=== PATIENT | female | born 1940 | race Caucasian/White ===

== ENCOUNTER 2016-06-20 12:48 | Inpatient (IN) | payer OTHER, MEDICARE ==
[~2016-06-20] VITALS: Ht 121.9 cm; Wt 62.1 kg
[~2016-06-20 12:48] MED LIST: ALDACTAZIDE 251 EACH PO; AMLODIPINE BESY10 MG PO; ASPIRIN NON IR325 MG PO; ATORVASTATIN 10 MG T PO; BUPROPION HCL150 M2 PO; CENTRUM SILVER1 EAC3 PO; ENDOCET 5-3251 EACH PO; FOLTX TABLET1 EAC1 PO; METFORMIN HCL500 M1 PO; METHOTREXATE2.5 MG PO; ONE DAILY GUM200 MCG PO; PRILOSEC20 MG PO; RAYOS2 MG PO; SPIRONOLACTONE-HCTZ
[2016-06-20 14:12] LABS: EOSINOPHIL COUNT 0.1 K/uL (0-0.3); HEMATOCRIT 37.9 % (36.0-46.0); IMMATURE GRANULOCYTE (%) 0.3 % (0.0-0.7); INSTRUMENT ABS NEUTROPHIL CT 8.1 K/uL; LYMPHOCYTE COUNT 1.7 K/uL (1.0-2.8); MCH 29.6 PG (29.0-34.0); MCHC 33.5 G/DL (30.0-36.0); MCV 88.3 FL (83-99); MEAN PLAT.VOLUME 9.7 uM^3 (9.5-12.4); MONOCYTE (%) 2.3 % (3-12); MONOCYTE COUNT 0.2 K/uL (0-0.8); NEUTROPHIL (%) 79.8 % (45-76); NEUTROPHIL COUNT 8.1 K/uL (1.8-6.4); PLATELET COUNT 379 K/uL (156-360); RBC DIS.WIDTH-CV 14.6 % (11.8-14.6); RBC DIS.WIDTH-SD 46.1 % (39-53); RED BLOOD COUNT 4.29 M/uL (3.80-5.20); WHITE BLOOD COUNT 10.2 K/uL (4.1-10.2)
[2016-06-20 14:20] LABS: CHLORIDE 108 mEq/L (99-109); POTASSIUM 4.5 mEq/L (3.7-5.4); SODIUM 142 mEq/L (136-147)
[2016-06-20 14:22] LABS: GLUCOSE 117 mg/dL (70-99)
[2016-06-20 14:23] LABS: D-DIMER ELISA 0.48 mg/L FEU (< 0.57)
[2016-06-20 14:24] LABS: ANION GAP 8 MEQ/L (2-14); TOTAL BILIRUBIN 0.3 mg/dL (0.0-1.0)
[2016-06-20 14:26] LABS: ALKALINE PHOSPHATASE 51 IU/L (3-129); GFR ESTIMATE (CALCULATED) 58 mL/min/
[2016-06-20 14:27] LABS: UREA NITROGEN (BUN) 30 mg/dL (9-23)
[2016-06-20 14:32] LABS: TROP-I INTERPRETATION NEGATIVE; TROPONIN-I 0.15 ng/mL (0.0-0.30)
[2016-06-20] MEDS ORDERED: LIPITOR10 MG PO (15:38)
[2016-06-20] MEDS ORDERED: LOW DOSE ASPIRI81 M1 PO (15:39)
[2016-06-20] MEDS ORDERED: BUPROPION XL300 MG PO (15:40)
[2016-06-20] MEDS ORDERED: OXAYDO5 MG PO (15:42)
[2016-06-20] MEDS ORDERED: PROAIR HFA8.5 GM IH (15:43)
[2016-06-20] MEDS ORDERED: PLAVIX75 MG PO (15:44)
[2016-06-20] MEDS ORDERED: CILOSTAZOL100 MG PO (15:46)
[2016-06-20] MEDS ORDERED: GLIMEPIRIDE1 MG PO (15:47)
[2016-06-20] MEDS ORDERED: ZEBETA10 MG PO (15:48)
[2016-06-20] MEDS ORDERED: FENOFIBRATE160 M1 PO (15:48)
[2016-06-20] MEDS ORDERED: CILOSTAZOL50 MG PO (16:26)
[2016-06-20 17:06] VITALS: BP 167/72
[2016-06-20 18:54] LABS: TROP-I INTERPRETATION NEGATIVE; TROPONIN-I 0.27 ng/mL (0.0-0.30)
[2016-06-20 20:00] VITALS: BP 150/65
[2016-06-21] VITALS (9 sets, daily range): BP systolic 107–144; BP diastolic 53–65
[2016-06-21 01:22] LABS: TROP-I INTERPRETATION INDETERMINATE; TROPONIN-I 0.35 ng/mL (0.0-0.30)
[2016-06-21 06:49] LABS: TROPONIN-I 0.67 ng/mL (0.0-0.30)
[2016-06-21 06:50] LABS: TROP-I INTERPRETATION POSITIVE
[2016-06-21 10:09] LABS: INTER. NORMALIZED RATIO 1.1; PROTHROMBIN TIME 10.7 (9.2-11.2); PTT 26.7 (25-32)
[2016-06-21 18:39] LABS: POINT-OF-CARE METER ID UU13113819
[2016-06-22 04:41] VITALS: BP 159/68
[2016-06-22 06:44] LABS: EOSINOPHIL (%) 1.1 % (0-5); EOSINOPHIL COUNT 0.1 K/uL (0-0.3); HEMATOCRIT 35.4 % (36.0-46.0); IMMATURE GRANULOCYTE (%) 0.6 % (0.0-0.7); IMMATURE GRANULOCYTE COUNT 0.1 K/uL; INSTRUMENT ABS NEUTROPHIL CT 9.1 K/uL; MCH 29.4 PG (29.0-34.0); MCHC 33.6 G/DL (30.0-36.0); MCV 87.4 FL (83-99); MEAN PLAT.VOLUME 9.6 uM^3 (9.5-12.4); MONOCYTE (%) 4.3 % (3-12); MONOCYTE COUNT 0.5 K/uL (0-0.8); NEUTROPHIL COUNT 9.1 K/uL (1.8-6.4); PLATELET COUNT 335 K/uL (156-360); RBC DIS.WIDTH-CV 14.2 % (11.8-14.6); RBC DIS.WIDTH-SD 43.8 % (39-53); RED BLOOD COUNT 4.05 M/uL (3.80-5.20); WHITE BLOOD COUNT 11.8 K/uL (4.1-10.2)
[2016-06-22 07:08] LABS: ANION GAP 10 MEQ/L (2-14); CHLORIDE 99 MEQ/L (99-109); GFR ESTIMATE (CALCULATED) > 59 mL/min/; GLUCOSE 138 mg/dL (70-99); SAMPLE HEMOLYSIS CHECK 0; SAMPLE ICTERIC CHECK 0; SAMPLE LIPEMIA CHECK 0; UREA NITROGEN (BUN) 15 mg/dL (9-23)
[2016-06-22 07:09] LABS: SODIUM 132 MEQ/L (136-147)
[2016-06-22 10:04] VITALS: BP 107/64
[2016-06-22] MEDS ORDERED: HYDROCHLOROTHIA25 MG PO (10:43)
[2016-06-22] MEDS ORDERED: LOPRESSOR100 M1 PO (10:43)
[2016-06-22] MEDS ORDERED: EFFIENT10 MG PO (10:43)
== END 2016-06-22 13:05 | disposition home or self-care (01) | DRG 247 ==
LOC: EME 12:48 → EDOF 15:29 → 5WEST 15:29 → 4EAST 06-21 21:08
PROVIDERS: Emergency Medicine; Hospitalist; Internal Medicine Cardiovascular Disease; Nurse Practitioner Family; Physician Assistant Medical
DX: I21.4 Non-ST elevation (NSTEMI) myocardial infarction (principal); E11.9 Type 2 diabetes mellitus without complications; M06.9 Rheumatoid arthritis, unspecified; I10 Essential (primary) hypertension; I25.110 Atherosclerotic heart disease of native coronary artery with unstable angina pectoris; M19.90 Unspecified osteoarthritis, unspecified site; E78.5 Hyperlipidemia, unspecified; I73.9 Peripheral vascular disease, unspecified; F17.210 Nicotine dependence, cigarettes, uncomplicated; Z79.84 Long term (current) use of oral hypoglycemic drugs; K21.9 Gastro-esophageal reflux disease without esophagitis; Z66 Do not resuscitate
CPT/HCPCS: 71010; 80048; 80053; 82948; 83880; 84484; 85025; 85347; 85379; 85610; 85730; 93005; 99281; 99285; C1725; C1760; C1769; C1874; C1887; C1894; G0378; J1644; J2250; J2405; J2765; J3010; J7030

== ENCOUNTER 2016-09-14 10:09 | Emergency (ER) | payer OTHER, MEDICARE ==
[~2016-09-14] VITALS: Ht 147.3 cm; Wt 53.5 kg
[~2016-09-14 10:09] MED LIST changes: +BUPROPION XL300 MG PO; +CILOSTAZOL100 MG PO; +CILOSTAZOL50 MG PO; +EFFIENT10 MG PO; +FENOFIBRATE160 M1 PO; +GLIMEPIRIDE1 MG PO; +HYDROCHLOROTHIA25 MG PO; +LIPITOR10 MG PO; +LOPRESSOR100 M1 PO; +LOW DOSE ASPIRI81 M1 PO; +OXAYDO5 MG PO; +PLAVIX75 MG PO; +PROAIR HFA8.5 GM IH; +ZEBETA10 MG PO
[2016-09-14 10:39] LABS: HEMATOCRIT 36.1 % (36.0-46.0); MCH 30.4 PG (29.0-34.0); MCHC 34.1 G/DL (30.0-36.0); MCV 89.4 FL (83-99); MEAN PLAT.VOLUME 9.4 uM^3 (9.5-12.4); PLATELET COUNT 283 K/uL (156-360); RBC DIS.WIDTH-CV 14.6 % (11.8-14.6); RBC DIS.WIDTH-SD 46.7 % (39-53); RED BLOOD COUNT 4.04 M/uL (3.80-5.20); WHITE BLOOD COUNT 5.8 K/uL (4.1-10.2)
[2016-09-14 10:45] LABS: CHLORIDE 101 mEq/L (99-109); POTASSIUM 4.2 mEq/L (3.7-5.4); SODIUM 135 mEq/L (136-147)
[2016-09-14 10:48] LABS: GLUCOSE 129 mg/dL (70-99)
[2016-09-14 10:49] LABS: ANION GAP 11 MEQ/L (2-14)
[2016-09-14 10:50] LABS: TOTAL BILIRUBIN 0.4 mg/dL (0.0-1.0)
[2016-09-14 10:51] LABS: ALKALINE PHOSPHATASE 53 IU/L (3-129); GFR ESTIMATE (CALCULATED) > 59 mL/min/
[2016-09-14 10:52] LABS: UREA NITROGEN (BUN) 15 mg/dL (9-23)
[2016-09-14 11:23] LABS: ADD MIUA? YES; BILIRUBIN NEGATIVE; BLOOD NEGATIVE; COLOR YELLOW ((YELLOW)); GLUCOSE (STRIP) NEGATIVE; KETONES NEGATIVE; LEUKOCYTES NEGATIVE; NITRITE NEGATIVE; PROTEIN (STRIP) 100; SPECIFIC GRAVITY 1.017 (1.000-1.030); UROBILINOGEN 0.2 MG/DL (0.2-1.0)
[2016-09-14 11:29] LABS: LIPASE 12 U/L (1.0-51.0)
[2016-09-14 11:38] LABS: BACTERIA RARE /HPF; EPITHELIAL CELLS 1+ /HPF; MUCUS TRACE /LPF; RED BLOOD CELLS 0-5 /HPF (0-5); UCUL ADDED? NO; UNCLASSIFIED CASTS 0-5 /LPF; WHITE BLOOD CELLS 0-5 /HPF (0-5)
[2016-09-14] MEDS ORDERED: ZOFRAN4 MG PO (13:59)
[2016-09-14 14:12] VITALS: BP 133/46
== END 2016-09-14 14:13 | disposition home or self-care (01) ==
LOC: EME 10:09
DX: R11.2 Nausea with vomiting, unspecified (principal); R10.9 Unspecified abdominal pain; K21.9 Gastro-esophageal reflux disease without esophagitis; J44.9 Chronic obstructive pulmonary disease, unspecified; I10 Essential (primary) hypertension; E11.9 Type 2 diabetes mellitus without complications; I25.2 Old myocardial infarction; Z79.82 Long term (current) use of aspirin; Z79.84 Long term (current) use of oral hypoglycemic drugs; Z79.899 Other long term (current) drug therapy; F17.200 Nicotine dependence, unspecified, uncomplicated
CPT/HCPCS: 74177; 80053; 81003; 83690; 85027; 99281; 99284; J2270; J2405; J7030

== ENCOUNTER 2017-01-29 09:25 | Emergency (ER) | payer OTHER, MEDICARE ==
[~2017-01-29] VITALS: Ht 157.5 cm; Wt 62.0 kg
[~2017-01-29 09:25] MED LIST changes: +ZOFRAN4 MG PO
[2017-01-29 12:05] LABS: ADD MIUA? YES; BILIRUBIN NEGATIVE; BLOOD NEGATIVE; COLOR YELLOW ((YELLOW)); GLUCOSE (STRIP) NEGATIVE; KETONES NEGATIVE; LEUKOCYTES NEGATIVE; NITRITE NEGATIVE; PROTEIN (STRIP) 100; UROBILINOGEN 0.2 MG/DL (0.2-1.0)
[2017-01-29 12:10] LABS: BACTERIA NONE SEEN /HPF; EPITHELIAL CELLS NONE SEEN /HPF; MUCUS NONE SEEN /LPF; RED BLOOD CELLS 0-5 /HPF (0-5); UCUL ADDED? NO; WHITE BLOOD CELLS 0-5 /HPF (0-5)
[2017-01-29] MEDS ORDERED: MEDROL DOSEPAK4 MG PO (12:19)
[2017-01-29 12:36] VITALS: BP 148/62
== END 2017-01-29 12:37 | disposition home or self-care (01) ==
LOC: EME 09:25
PROVIDERS: Emergency Medicine
DX: M54.41 Lumbago with sciatica, right side (principal); G89.29 Other chronic pain; J44.9 Chronic obstructive pulmonary disease, unspecified; I10 Essential (primary) hypertension; E11.9 Type 2 diabetes mellitus without complications; Z79.84 Long term (current) use of oral hypoglycemic drugs; Z79.82 Long term (current) use of aspirin; Z79.891 Long term (current) use of opiate analgesic; Z85.828 Personal history of other malignant neoplasm of skin; F17.200 Nicotine dependence, unspecified, uncomplicated
CPT/HCPCS: 72100; 81003; 99281; 99284; G8978 GP CJ; G8979 GP CH; G8987 GO CJ; G8988 GO CH; J1885

== ENCOUNTER 2017-04-23 11:37 | Inpatient (IN) | payer OTHER, MEDICARE ==
[~2017-04-23] VITALS: Ht 149.9 cm; Wt 50.9 kg
[~2017-04-23 11:37] MED LIST changes: +GLUCOPHAGE XR,500 MG PO; +MEDROL DOSEPAK4 MG PO; -METFORMIN HCL500 M1 PO
[2017-04-23 12:02] LABS: INTER. NORMALIZED RATIO 1.1
[2017-04-23 12:05] LABS: PTT 30.4 SEC (25-37)
[2017-04-23 12:07] LABS: AMYLASE 54 IU/L (1-118)
[2017-04-23 12:16] LABS: LIPASE 15 U/L (1.0-51.0)
[2017-04-23 12:17] LABS: TROP-I INTERPRETATION NEGATIVE; TROPONIN-I < 0.01 ng/mL (0.0-0.30)
[2017-04-23 14:10] LABS: AMPHETAMINE NEGATIVE (500 ng/mL); BARBITURATES NEGATIVE (200 ng/mL); BENZODIAZEPINES NEGATIVE (150 ng/mL); BUPRENORPHINE NEGATIVE (10 ng/mL); COCAINE NEGATIVE (150 ng/mL); METHADONE NEGATIVE (200 ng/mL); METHAMPHETAMINE NEGATIVE (500 ng/mL); OPIATES (MORPHINE) NEGATIVE (100 ng/mL); OXYCODONE PRESUMPTIVE POSITIVE (100 ng/mL); PHENCYCLIDINE NEGATIVE (25 ng/mL); PROPOXYPHENE NEGATIVE (300 ng/mL); THC CANNABINOIDS NEGATIVE (50 ng/mL); TRICYCLIC ANTIDEPRESSANTS NEGATIVE (300 ng/mL)
[2017-04-23 14:58] LABS: BASOPHIL (%) 0.3 % (0-1); EOSINOPHIL (%) 0.9 % (0-5); EOSINOPHIL COUNT 0.1 K/uL (0-0.3); HEMATOCRIT 41.7 % (36.0-46.0); HEMOGLOBIN 14.1 G/DL (11.9-15.5); IMMATURE GRANULOCYTE (%) 0.7 % (0.0-0.7); LYMPHOCYTE (%) 12.1 % (15-42); LYMPHOCYTE COUNT 1.7 K/uL (1.0-2.8); MCHC 33.8 G/DL (30.0-36.0); MCV 94.8 FL (83-99); MONOCYTE (%) 4.8 % (3-12); MONOCYTE COUNT 0.7 K/uL (0-0.8); NEUTROPHIL (%) 81.2 % (45-76); NEUTROPHIL COUNT 11.3 K/uL (1.8-6.4); PLATELET COUNT 278 K/uL (156-360); RBC DIS.WIDTH-CV 14.4 % (11.8-14.6); RBC DIS.WIDTH-SD 48.6 % (39-53); WHITE BLOOD COUNT 13.9 K/uL (4.1-10.2)
[2017-04-23] MEDS ORDERED: BUPROPION XL300 MG PO (15:19)
[2017-04-23] MEDS ORDERED: IMDUR30 MG PO (15:44)
[2017-04-23 15:47] LABS: ALBUMIN 3.9 G/DL (3.2-4.8); CHLORIDE 98 MEQ/L (99-109); POTASSIUM 3.9 MEQ/L (3.7-5.4); SODIUM 133 MEQ/L (136-147); TOTAL BILIRUBIN 0.6 MG/DL (0.0-1.0)
[2017-04-23 15:52] LABS: ALKALINE PHOSPHATASE 70 IU/L (3-129); ALT (GPT) 12 IU/L (3-49); AST (GOT) 11 IU/L (2-34); CREATININE 0.8 MG/DL (0.6-1.3); GFR ESTIMATE (CALCULATED) > 59 mL/min/; GLUCOSE 234 mg/dL (70-99); TOTAL PROTEIN 6.9 G/DL (6.4-8.3); UREA NITROGEN (BUN) 22 mg/dL (9-23)
[2017-04-23] MEDS ORDERED: EFFIENT10 MG PO (18:05)
[2017-04-23] MEDS ORDERED: OXYCONTIN15 MG PO (18:08)
[2017-04-23] MEDS ORDERED: PRESERVISION T1 EACH PO (18:09)
[2017-04-23 20:39] LABS: HDL CHOLESTEROL 37 MG/DL (Desirable>=50); LDL CHOLESTEROL 89 mg/dL (Desirable<100); NON-HDL CHOLESTEROL 135 mg/dL (Desirable<160); TOTAL CHOLESTEROL 172 mg/dL (Desirable<200); TRIGLYCERIDES 228 MG/DL (Normal: <150)
[2017-04-24] VITALS (7 sets, daily range): BP systolic 144–212; BP diastolic 65–84
[2017-04-24 06:56] LABS: HEMATOCRIT 41.7 % (36.0-46.0); HEMOGLOBIN 14.2 G/DL (11.9-15.5); MCH 31.8 PG (29.0-34.0); MCHC 34.1 G/DL (30.0-36.0); MCV 93.5 FL (83-99); PLATELET COUNT 249 K/uL (156-360); RBC DIS.WIDTH-CV 13.9 % (11.8-14.6); RBC DIS.WIDTH-SD 46.2 % (39-53); RED BLOOD COUNT 4.46 M/uL (3.80-5.20); WHITE BLOOD COUNT 17.4 K/uL (4.1-10.2)
[2017-04-24 07:19] LABS: ALBUMIN 3.7 G/DL (3.2-4.8); ALKALINE PHOSPHATASE 76 IU/L (3-129); ALT (GPT) 13 IU/L (3-49); AST (GOT) 12 IU/L (2-34); CHLORIDE 100 MEQ/L (99-109); CREATININE 0.7 MG/DL (0.6-1.3); GFR ESTIMATE (CALCULATED) > 59 mL/min/; GLUCOSE 145 mg/dL (70-99); POTASSIUM 4.5 MEQ/L (3.7-5.4); SODIUM 135 MEQ/L (136-147); TOTAL PROTEIN 6.3 G/DL (6.4-8.3); UREA NITROGEN (BUN) 17 mg/dL (9-23)
[2017-04-24 09:41] LABS: HEMOGLOBIN A1c (GLYCOHEMOGLOB) 6.6 % (Below 5.7)
[2017-04-25] VITALS (7 sets, daily range): BP systolic 133–179; BP diastolic 60–81
[2017-04-25 05:54] LABS: BASOPHIL (%) 0.2 % (0-1); BASOPHIL COUNT 0.1 K/uL (0-0.1); EOSINOPHIL (%) 0 % (0-5); IMMATURE GRANULOCYTE (%) 1.3 % (0.0-0.7); LYMPHOCYTE (%) 3.2 % (15-42); MONOCYTE (%) 6.9 % (3-12); MONOCYTE COUNT 2.2 K/uL (0-0.8); NEUTROPHIL (%) 88.4 % (45-76); NEUTROPHIL COUNT 27.7 K/uL (1.8-6.4); PLATELET COUNT 282 K/uL (156-360)
[2017-04-25 06:05] LABS: HEMATOCRIT 41.9 % (36.0-46.0); HEMOGLOBIN 14.5 G/DL (11.9-15.5); MCHC 34.6 G/DL (30.0-36.0); MCV 92.5 FL (83-99); RBC DIS.WIDTH-CV 13.9 % (11.8-14.6); RED BLOOD COUNT 4.53 M/uL (3.80-5.20); WHITE BLOOD COUNT 31.2 K/uL (4.1-10.2)
[2017-04-25 06:21] LABS: CHLORIDE 98 MEQ/L (99-109); CREATININE 0.8 MG/DL (0.6-1.3); GFR ESTIMATE (CALCULATED) > 59 mL/min/; POTASSIUM 4.4 MEQ/L (3.7-5.4); SODIUM 136 MEQ/L (136-147)
[2017-04-25 06:22] LABS: GLUCOSE 219 mg/dL (70-99); UREA NITROGEN (BUN) 37 mg/dL (9-23)
[2017-04-25 10:42] LABS: BASOPHIL (%) 0.2 % (0-1); BASOPHIL COUNT 0.1 K/uL (0-0.1); EOSINOPHIL (%) 0 % (0-5); IMMATURE GRANULOCYTE (%) 3.1 % (0.0-0.7); LYMPHOCYTE (%) 3.2 % (15-42); LYMPHOCYTE COUNT 1.2 K/uL (1.0-2.8); MONOCYTE (%) 6.6 % (3-12); MONOCYTE COUNT 2.4 K/uL (0-0.8); NEUTROPHIL (%) 86.9 % (45-76); NEUTROPHIL COUNT 31.3 K/uL (1.8-6.4); PLATELET COUNT 258 K/uL (156-360)
[2017-04-25 10:50] LABS: HEMATOCRIT 41.5 % (36.0-46.0); HEMOGLOBIN 14.2 G/DL (11.9-15.5); MCH 32.3 PG (29.0-34.0); MCHC 34.2 G/DL (30.0-36.0); MCV 94.3 FL (83-99); NRBC (%) 0.1 /100 WBC (0-0); RBC DIS.WIDTH-CV 14.2 % (11.8-14.6); RBC DIS.WIDTH-SD 47.2 % (39-53)
[2017-04-25 10:51] LABS: WHITE BLOOD COUNT 36.1 K/uL (4.1-10.2)
[2017-04-25 15:07] LABS: BILIRUBIN NEGATIVE; BLOOD NEGATIVE; COLOR AMBER ((YELLOW)); GLUCOSE (STRIP) NEGATIVE; KETONES NEGATIVE; LEUKOCYTES NEGATIVE; NITRITE NEGATIVE; PROTEIN (STRIP) 100; SPECIFIC GRAVITY 1.019 (1.000-1.030)
[2017-04-25 15:13] LABS: APPEARANCE CLEAR ((CLEAR))
[2017-04-25 15:17] LABS: BACTERIA NONE SEEN /HPF; EPITHELIAL CELLS RARE /HPF; HYALINE CASTS 30-40 /LPF; MUCUS TRACE /LPF; UCUL ADDED? NO; WHITE BLOOD CELLS 0-5 /HPF (0-5)
[2017-04-25 17:03] LABS: BICARBONATE 23.8 mEq/L (22-26); CARBOXY HGB 2.8 % (0-5); COMMENTS - BLOOD GASES A+C+; METHEMOGLOBIN 1.8 % (0-1.5); PCO2 32 mm Hg (35-45); PO2 56 mm Hg (80-100); SITE RR; TOTAL RESP RATE 16 resp/min; pH 7.48 (7.35-7.45)
[2017-04-25 23:48] LABS: PLATELET COUNT 247 K/uL (156-360)
[2017-04-25 23:49] LABS: HEMATOCRIT 35.9 % (36.0-46.0); HEMOGLOBIN 12.8 G/DL (11.9-15.5); MCH 32.2 PG (29.0-34.0); MCHC 35.7 G/DL (30.0-36.0); MCV 90.4 FL (83-99); RBC DIS.WIDTH-CV 13.5 % (11.8-14.6); RBC DIS.WIDTH-SD 43.5 % (39-53); RED BLOOD COUNT 3.97 M/uL (3.80-5.20); WHITE BLOOD COUNT 35.5 K/uL (4.1-10.2)
[2017-04-25 23:57] LABS: INTER. NORMALIZED RATIO 1.2
[2017-04-26] LABS: PTT 34.1 SEC (25-37)
[2017-04-26 04:20] VITALS: BP 139/63
[2017-04-26 06:32] LABS: BASOPHIL (%) 0.2 % (0-1); BASOPHIL COUNT 0.1 K/uL (0-0.1); EOSINOPHIL (%) 0 % (0-5); LYMPHOCYTE (%) 2.9 % (15-42); LYMPHOCYTE COUNT 0.9 K/uL (1.0-2.8); MONOCYTE (%) 5.5 % (3-12); MONOCYTE COUNT 1.7 K/uL (0-0.8); NEUTROPHIL (%) 90.4 % (45-76); NEUTROPHIL COUNT 28.2 K/uL (1.8-6.4); PLATELET COUNT 235 K/uL (156-360)
[2017-04-26 06:40] LABS: HEMATOCRIT 35.7 % (36.0-46.0); HEMOGLOBIN 12.3 G/DL (11.9-15.5); MCH 31.8 PG (29.0-34.0); MCHC 34.5 G/DL (30.0-36.0); MCV 92.2 FL (83-99); RBC DIS.WIDTH-CV 13.7 % (11.8-14.6); RBC DIS.WIDTH-SD 44.7 % (39-53); RED BLOOD COUNT 3.87 M/uL (3.80-5.20)
[2017-04-26 06:45] LABS: WHITE BLOOD COUNT 31.2 K/uL (4.1-10.2)
[2017-04-26 06:53] VITALS: BP 119/55
[2017-04-26 07:19] LABS: CHLORIDE 97 MEQ/L (99-109); GFR ESTIMATE (CALCULATED) 57 mL/min/; GLUCOSE 197 mg/dL (70-99); SODIUM 133 MEQ/L (136-147)
[2017-04-26 07:23] LABS: UREA NITROGEN (BUN) 58 mg/dL (9-23)
[2017-04-26 10:27] LABS: INTER. NORMALIZED RATIO 1.2
[2017-04-26 11:15] VITALS: BP 145/63
[2017-04-26 19:53] VITALS: BP 155/59
[2017-04-26 23:33] VITALS: BP 166/68
[2017-04-27 03:40] VITALS: BP 174/70
[2017-04-27 06:46] LABS: BASOPHIL (%) 0.1 % (0-1); EOSINOPHIL (%) 0.1 % (0-5); HEMATOCRIT 33.2 % (36.0-46.0); HEMOGLOBIN 11.2 G/DL (11.9-15.5); IMMATURE GRANULOCYTE (%) 0.9 % (0.0-0.7); LYMPHOCYTE (%) 4.3 % (15-42); MCH 31.2 PG (29.0-34.0); MCHC 33.7 G/DL (30.0-36.0); MCV 92.5 FL (83-99); MONOCYTE (%) 6.2 % (3-12); MONOCYTE COUNT 1.4 K/uL (0-0.8); NEUTROPHIL (%) 88.4 % (45-76); NEUTROPHIL COUNT 19.8 K/uL (1.8-6.4); PLATELET COUNT 221 K/uL (156-360); RBC DIS.WIDTH-CV 13.6 % (11.8-14.6); RBC DIS.WIDTH-SD 45.4 % (39-53); RED BLOOD COUNT 3.59 M/uL (3.80-5.20); WHITE BLOOD COUNT 22.4 K/uL (4.1-10.2)
[2017-04-27 06:54] VITALS: BP 142/63
[2017-04-27 07:07] LABS: ALBUMIN 2.7 G/DL (3.2-4.8); CHLORIDE 104 MEQ/L (99-109); CREATININE 0.7 MG/DL (0.6-1.3); DIRECT BILIRUBIN 0.3 mg/dL (0.0-0.3); GFR ESTIMATE (CALCULATED) > 59 mL/min/; GLUCOSE 147 mg/dL (70-99); POTASSIUM 3.5 MEQ/L (3.7-5.4); SODIUM 138 MEQ/L (136-147); TOTAL BILIRUBIN 0.8 MG/DL (0.0-1.0); UREA NITROGEN (BUN) 38 mg/dL (9-23)
[2017-04-27 07:09] LABS: ALKALINE PHOSPHATASE 101 IU/L (3-129); ALT (GPT) 26 IU/L (3-49); AST (GOT) 27 IU/L (2-34); TOTAL PROTEIN 5.2 G/DL (6.4-8.3)
[2017-04-27 11:09] VITALS: BP 168/63
[2017-04-27 15:12] VITALS: BP 123/58
[2017-04-27 20:04] VITALS: BP 123/66
[2017-04-28 06:36] LABS: BASOPHIL (%) 0.1 % (0-1); EOSINOPHIL (%) 0.8 % (0-5); EOSINOPHIL COUNT 0.2 K/uL (0-0.3); HEMATOCRIT 31.9 % (36.0-46.0); IMMATURE GRANULOCYTE (%) 0.8 % (0.0-0.7); LYMPHOCYTE (%) 5.8 % (15-42); LYMPHOCYTE COUNT 1.1 K/uL (1.0-2.8); MCH 31.8 PG (29.0-34.0); MCHC 34.5 G/DL (30.0-36.0); MCV 92.2 FL (83-99); MONOCYTE (%) 6.1 % (3-12); MONOCYTE COUNT 1.1 K/uL (0-0.8); NEUTROPHIL (%) 86.4 % (45-76); NEUTROPHIL COUNT 16.1 K/uL (1.8-6.4); PLATELET COUNT 275 K/uL (156-360); RBC DIS.WIDTH-CV 13.7 % (11.8-14.6); RBC DIS.WIDTH-SD 44.7 % (39-53); RED BLOOD COUNT 3.46 M/uL (3.80-5.20); WHITE BLOOD COUNT 18.6 K/uL (4.1-10.2)
[2017-04-28 07:03] LABS: ALBUMIN 2.9 G/DL (3.2-4.8); ALT (GPT) 36 IU/L (3-49); AST (GOT) 31 IU/L (2-34); CHLORIDE 106 MEQ/L (99-109); CREATININE 0.5 MG/DL (0.6-1.3); GFR ESTIMATE (CALCULATED) > 59 mL/min/; SODIUM 137 MEQ/L (136-147); TOTAL PROTEIN 5.5 G/DL (6.4-8.3); UREA NITROGEN (BUN) 28 mg/dL (9-23)
[2017-04-28 07:06] LABS: ALKALINE PHOSPHATASE 139 IU/L (3-129); GLUCOSE 73 mg/dL (70-99); POTASSIUM 4.3 MEQ/L (3.7-5.4); TOTAL BILIRUBIN 0.6 MG/DL (0.0-1.0)
[2017-04-28 07:19] VITALS: BP 95/51
[2017-04-28 11:00] VITALS: BP 110/55
[2017-04-28 15:09] VITALS: BP 152/67
[2017-04-28 18:55] VITALS: BP 170/68
[2017-04-28 23:46] VITALS: BP 164/69
[2017-04-29 04:16] VITALS: BP 160/65
[2017-04-29 06:48] LABS: BASOPHIL (%) 0.2 % (0-1); EOSINOPHIL (%) 1.2 % (0-5); EOSINOPHIL COUNT 0.2 K/uL (0-0.3); HEMATOCRIT 36.1 % (36.0-46.0); HEMOGLOBIN 12.1 G/DL (11.9-15.5); IMMATURE GRANULOCYTE (%) 0.7 % (0.0-0.7); LYMPHOCYTE (%) 9.9 % (15-42); LYMPHOCYTE COUNT 1.3 K/uL (1.0-2.8); MCH 31.9 PG (29.0-34.0); MCHC 33.5 G/DL (30.0-36.0); MCV 95.3 FL (83-99); MONOCYTE (%) 3.5 % (3-12); MONOCYTE COUNT 0.5 K/uL (0-0.8); NEUTROPHIL (%) 84.5 % (45-76); NEUTROPHIL COUNT 10.9 K/uL (1.8-6.4); PLATELET COUNT 288 K/uL (156-360); RBC DIS.WIDTH-CV 14.2 % (11.8-14.6); RBC DIS.WIDTH-SD 48.3 % (39-53); RED BLOOD COUNT 3.79 M/uL (3.80-5.20); WHITE BLOOD COUNT 12.9 K/uL (4.1-10.2)
[2017-04-29 07:15] LABS: ALBUMIN 2.9 G/DL (3.2-4.8); ALKALINE PHOSPHATASE 199 IU/L (3-129); ALT (GPT) 72 IU/L (3-49); AST (GOT) 81 IU/L (2-34); CHLORIDE 105 MEQ/L (99-109); CREATININE 0.8 MG/DL (0.6-1.3); GFR ESTIMATE (CALCULATED) > 59 mL/min/; GLUCOSE 102 mg/dL (70-99); POTASSIUM 4.9 MEQ/L (3.7-5.4); SODIUM 134 MEQ/L (136-147); TOTAL BILIRUBIN 0.7 MG/DL (0.0-1.0); TOTAL PROTEIN 5.4 G/DL (6.4-8.3); UREA NITROGEN (BUN) 29 mg/dL (9-23)
[2017-04-29 07:22] VITALS: BP 125/74
[2017-04-29 15:31] VITALS: BP 119/57
[2017-04-29 21:20] VITALS: BP 134/82
[2017-04-29 23:07] VITALS: BP 117/58
[2017-04-30 06:01] LABS: HEMATOCRIT 32.1 % (36.0-46.0); HEMOGLOBIN 10.8 G/DL (11.9-15.5); MCH 31.5 PG (29.0-34.0); MCHC 33.6 G/DL (30.0-36.0); MCV 93.6 FL (83-99); PLATELET COUNT 336 K/uL (156-360); RBC DIS.WIDTH-SD 47.4 % (39-53); RED BLOOD COUNT 3.43 M/uL (3.80-5.20); WHITE BLOOD COUNT 11.8 K/uL (4.1-10.2)
[2017-04-30 07:14] VITALS: BP 145/63
[2017-04-30 15:24] VITALS: BP 140/62
[2017-04-30 23:39] VITALS: BP 178/85
[2017-05-01 07:53] VITALS: BP 170/52
[2017-05-01 07:58] VITALS: BP 195/79
[2017-05-01 08:04] VITALS: BP 168/50
[2017-05-01 11:07] LABS: BASOPHIL (%) 0.4 % (0-1); EOSINOPHIL (%) 2.3 % (0-5); EOSINOPHIL COUNT 0.2 K/uL (0-0.3); HEMATOCRIT 31.3 % (36.0-46.0); HEMOGLOBIN 10.4 G/DL (11.9-15.5); IMMATURE GRANULOCYTE (%) 1.5 % (0.0-0.7); LYMPHOCYTE (%) 16.3 % (15-42); LYMPHOCYTE COUNT 1.6 K/uL (1.0-2.8); MCH 30.7 PG (29.0-34.0); MCHC 33.2 G/DL (30.0-36.0); MCV 92.3 FL (83-99); MONOCYTE (%) 2.4 % (3-12); MONOCYTE COUNT 0.2 K/uL (0-0.8); NEUTROPHIL (%) 77.1 % (45-76); NEUTROPHIL COUNT 7.6 K/uL (1.8-6.4); PLATELET COUNT 343 K/uL (156-360); RBC DIS.WIDTH-CV 13.7 % (11.8-14.6); RBC DIS.WIDTH-SD 45.9 % (39-53); RED BLOOD COUNT 3.39 M/uL (3.80-5.20); WHITE BLOOD COUNT 9.8 K/uL (4.1-10.2)
[2017-05-01] MEDS ORDERED: ATORVASTATIN CA40 MG PO (11:17)
[2017-05-01] MEDS ORDERED: LEVEMIR100 UNIT/2 SC (11:18)
[2017-05-01] MEDS ORDERED: QUETIAPINE FUMA25 MG PO (11:18)
[2017-05-01] MEDS ORDERED: NOVOLOG 10100 UNITS/ SC (11:18)
[2017-05-01] MEDS ORDERED: Salonpas 4% Patch TD (11:19)
[2017-05-01 11:37] LABS: ALBUMIN 2.7 G/DL (3.2-4.8); ALKALINE PHOSPHATASE 187 IU/L (3-129); ALT (GPT) 71 IU/L (3-49); AST (GOT) 47 IU/L (2-34); DIRECT BILIRUBIN 0.1 mg/dL (0.0-0.3)
[2017-05-01 11:38] LABS: TOTAL BILIRUBIN 0.4 MG/DL (0.0-1.0)
[2017-05-01] MEDS ORDERED: LEVOFLOXACIN750 MG PO (12:14)
== END 2017-05-01 16:30 | DRG 65 ==
LOC: EME 11:37 → EDOF 18:40 → ENRESERV 18:53 → 5SOUTH 19:40 → EDOF 19:40 → ENRESERV 19:41 → 5SOUTH 22:13
PROVIDERS: Emergency Medicine; Hospitalist; Internal Medicine; Physician Assistant; Physician Assistant Medical
PROC: 0F9430Z Drainage of Gallbladder with Drainage Device, Percutaneous Approach (ICD-10-PCS; principal; 2017-04-26)
DX: I63.9 Cerebral infarction, unspecified (principal); K81.0 Acute cholecystitis; G81.91 Hemiplegia, unspecified affecting right dominant side; F05 Delirium due to known physiological condition; J98.11 Atelectasis; F33.9 Major depressive disorder, recurrent, unspecified; E78.5 Hyperlipidemia, unspecified; E11.65 Type 2 diabetes mellitus with hyperglycemia; F17.210 Nicotine dependence, cigarettes, uncomplicated; I10 Essential (primary) hypertension; I25.10 Atherosclerotic heart disease of native coronary artery without angina pectoris; E11.51 Type 2 diabetes mellitus with diabetic peripheral angiopathy without gangrene; F45.21 Hypochondriasis; I65.21 Occlusion and stenosis of right carotid artery; J43.9 Emphysema, unspecified; K21.9 Gastro-esophageal reflux disease without esophagitis; K52.9 Noninfective gastroenteritis and colitis, unspecified; M06.9 Rheumatoid arthritis, unspecified; M48.061 Spinal stenosis, lumbar region without neurogenic claudication; M54.16 Radiculopathy, lumbar region; I49.3 Ventricular premature depolarization; I73.9 Peripheral vascular disease, unspecified; B96.1 Klebsiella pneumoniae [K. pneumoniae] as the cause of diseases classified elsewhere; I25.2 Old myocardial infarction; Z78.1 Physical restraint status; Z90.710 Acquired absence of both cervix and uterus; Z95.5 Presence of coronary angioplasty implant and graft; Z79.84 Long term (current) use of oral hypoglycemic drugs; Z79.02 Long term (current) use of antithrombotics/antiplatelets; Z79.51 Long term (current) use of inhaled steroids; Z79.82 Long term (current) use of aspirin; Z82.49 Family history of ischemic heart disease and other diseases of the circulatory system
CPT/HCPCS: 36600; 49405; 70450; 70544; 70549; 70551; 71046; 71250; 74176; 80048; 80053; 80061; 80076; 81003; 82150; 82803; 82948; 83036; 83520 90; 83605; 83690; 83735; 84484; 85025; 85025 91; 85027; 85610; 85730; 87040; 87070; 87075; 87077; 87186; 87205; 87493; 87502; 92523 GN; 93005; 93306; 93880; 99202; 99281; 99285; C1769; J0360; J1630; J1644; J1815; J2060; J2405; J2543; J3010; J7030; J7050; J8610; S0028

== ENCOUNTER 2017-05-14 09:00 | Inpatient (IN) | payer OTHER, MEDICARE ==
[~2017-05-14] VITALS: Ht 147.3 cm; Wt 44.2 kg
[~2017-05-14 09:00] MED LIST changes: +ATORVASTATIN CA40 MG PO; +EFFIENT5 MG PO; +IMDUR30 MG PO; +LEVEMIR100 UNIT/2 SC; +LEVOFLOXACIN750 MG PO; +NOVOLOG 10100 UNITS/ SC; +OXYCONTIN15 MG PO; +PRESERVISION T1 EACH PO; +QUETIAPINE FUMA25 MG PO; +Salonpas 4% Patch TD
[2017-05-14 09:30] LABS: BASOPHIL (%) 0.4 % (0-1); EOSINOPHIL (%) 0.9 % (0-5); EOSINOPHIL COUNT 0.1 K/uL (0-0.3); HEMATOCRIT 33.5 % (36.0-46.0); HEMOGLOBIN 11.6 G/DL (11.9-15.5); IMMATURE GRANULOCYTE (%) 0.9 % (0.0-0.7); LYMPHOCYTE (%) 11.7 % (15-42); LYMPHOCYTE COUNT 1.3 K/uL (1.0-2.8); MCH 30.9 PG (29.0-34.0); MCHC 34.6 G/DL (30.0-36.0); MCV 89.3 FL (83-99); MONOCYTE (%) 3.2 % (3-12); MONOCYTE COUNT 0.4 K/uL (0-0.8); NEUTROPHIL (%) 82.9 % (45-76); NEUTROPHIL COUNT 9.3 K/uL (1.8-6.4); PLATELET COUNT 380 K/uL (156-360); RBC DIS.WIDTH-CV 13.7 % (11.8-14.6); RBC DIS.WIDTH-SD 43.8 % (39-53); RED BLOOD COUNT 3.75 M/uL (3.80-5.20); WHITE BLOOD COUNT 11.2 K/uL (4.1-10.2)
[2017-05-14 09:36] LABS: INTER. NORMALIZED RATIO 1.4
[2017-05-14 09:38] LABS: ALBUMIN 3.3 g/dL (3.2-4.8)
[2017-05-14 09:39] LABS: CHLORIDE 101 mEq/L (99-109); SODIUM 134 mEq/L (136-147)
[2017-05-14 09:41] LABS: GLUCOSE 75 mg/dL (70-99); TOTAL PROTEIN 5.9 g/dL (6.4-8.3)
[2017-05-14 09:43] LABS: TOTAL BILIRUBIN 0.6 mg/dL (0.0-1.0)
[2017-05-14 09:44] LABS: ALKALINE PHOSPHATASE 96 IU/L (3-129)
[2017-05-14 09:45] LABS: CREATININE 0.9 mg/dL (0.6-1.3); GFR ESTIMATE (CALCULATED) > 59 mL/min/
[2017-05-14 09:46] LABS: AST (GOT) 15 IU/L (2-34); UREA NITROGEN (BUN) 28 mg/dL (9-23)
[2017-05-14 09:47] LABS: ALT (GPT) 9 IU/L (3-49)
[2017-05-14 09:48] LABS: LIPASE 15 U/L (1.0-51.0)
[2017-05-14 09:53] LABS: POTASSIUM 3.4 mEq/L (3.7-5.4)
[2017-05-14] MEDS ORDERED: QUETIAPINE FUMA25 MG PO (12:43)
[2017-05-14] MEDS ORDERED: ROCEPHIN1 GM/50 ML IV (12:44)
[2017-05-14] MEDS ORDERED: RANITIDINE HCL150 MG PO (12:44)
[2017-05-14] MEDS ORDERED: FLORASTOR250 MG PO (12:46)
[2017-05-14] MEDS ORDERED: FLAGYL500 MG PO (12:48)
[2017-05-14] MEDS ORDERED: ASPERCREME1 EACH TP (12:50)
[2017-05-14] MEDS ORDERED: ACETAMINOPHEN325 M1 PO (12:50)
[2017-05-14] MEDS ORDERED: DULCOLAX10 MG PR (12:51)
[2017-05-14] MEDS ORDERED: HYDRALAZINE HCL10 MG PO (12:52)
[2017-05-14] MEDS ORDERED: MILK OF MAGN PO (12:52)
[2017-05-14] MEDS ORDERED: MIRALAX255 GM PO (12:52)
[2017-05-14] MEDS ORDERED: OXYCODONE HCL5 MG PO (12:53)
[2017-05-14] MEDS ORDERED: TYLENOL REGULA325 MG PO (12:54)
[2017-05-14] MEDS ORDERED: ONDANSETRON HCL4 MG PO (12:56)
[2017-05-14 16:58] VITALS: BP 144/65
[2017-05-14 19:40] VITALS: BP 143/62
[2017-05-14 23:22] VITALS: BP 132/81
[2017-05-14 23:36] VITALS: BP 144/62
[2017-05-15 04:30] VITALS: BP 143/65
[2017-05-15 05:23] LABS: BASOPHIL (%) 0.6 % (0-1); BASOPHIL COUNT 0.1 K/uL (0-0.1); EOSINOPHIL (%) 1.8 % (0-5); EOSINOPHIL COUNT 0.2 K/uL (0-0.3); HEMATOCRIT 30.4 % (36.0-46.0); HEMOGLOBIN 10.3 G/DL (11.9-15.5); IMMATURE GRANULOCYTE (%) 1.1 % (0.0-0.7); LYMPHOCYTE (%) 15.9 % (15-42); LYMPHOCYTE COUNT 1.3 K/uL (1.0-2.8); MCH 30.3 PG (29.0-34.0); MCHC 33.9 G/DL (30.0-36.0); MCV 89.4 FL (83-99); MONOCYTE (%) 5.7 % (3-12); MONOCYTE COUNT 0.5 K/uL (0-0.8); NEUTROPHIL (%) 74.9 % (45-76); NEUTROPHIL COUNT 6.3 K/uL (1.8-6.4); PLATELET COUNT 336 K/uL (156-360); RBC DIS.WIDTH-CV 13.9 % (11.8-14.6); RBC DIS.WIDTH-SD 44.5 % (39-53); WHITE BLOOD COUNT 8.4 K/uL (4.1-10.2)
[2017-05-15 05:49] LABS: ALBUMIN 2.6 G/DL (3.2-4.8); ALKALINE PHOSPHATASE 70 IU/L (3-129); ALT (GPT) 7 IU/L (3-49); AST (GOT) 13 IU/L (2-34); CHLORIDE 109 MEQ/L (99-109); CREATININE 0.7 MG/DL (0.6-1.3); DIRECT BILIRUBIN 0.2 mg/dL (0.0-0.3); GFR ESTIMATE (CALCULATED) > 59 mL/min/; GLUCOSE 64 mg/dL (70-99); POTASSIUM 3.9 MEQ/L (3.7-5.4); SODIUM 138 MEQ/L (136-147); TOTAL BILIRUBIN 0.6 MG/DL (0.0-1.0); TOTAL PROTEIN 4.8 G/DL (6.4-8.3); UREA NITROGEN (BUN) 18 mg/dL (9-23)
[2017-05-15 07:42] VITALS: BP 133/62
[2017-05-15 11:51] VITALS: BP 150/69
[2017-05-15 14:53] LABS: APPEARANCE CLEAR ((CLEAR)); BILIRUBIN NEGATIVE; BLOOD NEGATIVE; COLOR YELLOW ((YELLOW)); GLUCOSE (STRIP) NEGATIVE; KETONES 5; LEUKOCYTES TRACE; NITRITE NEGATIVE; PROTEIN (STRIP) NEGATIVE; UROBILINOGEN 0.2 MG/DL (0.2-1.0)
[2017-05-15 14:59] LABS: BACTERIA NONE SEEN /HPF; EPITHELIAL CELLS RARE /HPF; MUCUS TRACE /LPF; RED BLOOD CELLS 0-5 /HPF (0-5); UCUL ADDED? NO; WHITE BLOOD CELLS 0-5 /HPF (0-5)
[2017-05-15 15:30] VITALS: BP 145/79
[2017-05-15 19:22] VITALS: BP 136/62
[2017-05-15 23:50] VITALS: BP 143/67
[2017-05-16 05:14] VITALS: BP 130/61
[2017-05-16 06:03] LABS: BASOPHIL (%) 0.8 % (0-1); BASOPHIL COUNT 0.1 K/uL (0-0.1); EOSINOPHIL (%) 1.8 % (0-5); EOSINOPHIL COUNT 0.2 K/uL (0-0.3); HEMATOCRIT 34.5 % (36.0-46.0); HEMOGLOBIN 11.5 G/DL (11.9-15.5); IMMATURE GRANULOCYTE (%) 1.6 % (0.0-0.7); LYMPHOCYTE (%) 17.8 % (15-42); LYMPHOCYTE COUNT 1.8 K/uL (1.0-2.8); MCH 30.1 PG (29.0-34.0); MCHC 33.3 G/DL (30.0-36.0); MCV 90.3 FL (83-99); MONOCYTE (%) 9.4 % (3-12); MONOCYTE COUNT 0.9 K/uL (0-0.8); NEUTROPHIL (%) 68.6 % (45-76); NEUTROPHIL COUNT 6.8 K/uL (1.8-6.4); PLATELET COUNT 367 K/uL (156-360); RBC DIS.WIDTH-CV 14.3 % (11.8-14.6); RBC DIS.WIDTH-SD 45.8 % (39-53); RED BLOOD COUNT 3.82 M/uL (3.80-5.20); WHITE BLOOD COUNT 9.9 K/uL (4.1-10.2)
[2017-05-16 06:21] LABS: ALBUMIN 2.9 G/DL (3.2-4.8); ALKALINE PHOSPHATASE 84 IU/L (3-129); ALT (GPT) 11 IU/L (3-49); CHLORIDE 108 MEQ/L (99-109); CREATININE 0.7 MG/DL (0.6-1.3); GFR ESTIMATE (CALCULATED) > 59 mL/min/; POTASSIUM 3.6 MEQ/L (3.7-5.4); SODIUM 138 MEQ/L (136-147); TOTAL BILIRUBIN 0.5 MG/DL (0.0-1.0); TOTAL PROTEIN 4.9 G/DL (6.4-8.3); UREA NITROGEN (BUN) 14 mg/dL (9-23)
[2017-05-16 06:22] LABS: AST (GOT) 21 IU/L (2-34); GLUCOSE 92 mg/dL (70-99)
[2017-05-16 07:59] VITALS: BP 132/62
[2017-05-16 11:56] VITALS: BP 136/61
[2017-05-16] MEDS ORDERED: SEROQUEL12.5 MG PO (13:31)
== END 2017-05-16 16:23 | DRG 444 ==
LOC: EME 09:00 → EDOF 10:20 → 3EAST 10:20 → ENRESERV 10:21 → 3EAST 15:47
PROVIDERS: Emergency Medicine; Internal Medicine
DX: K81.0 Acute cholecystitis (principal); E78.6 Lipoprotein deficiency; F17.200 Nicotine dependence, unspecified, uncomplicated; I10 Essential (primary) hypertension; G93.41 Metabolic encephalopathy; I25.110 Atherosclerotic heart disease of native coronary artery with unstable angina pectoris; E11.51 Type 2 diabetes mellitus with diabetic peripheral angiopathy without gangrene; E87.6 Hypokalemia; I69.351 Hemiplegia and hemiparesis following cerebral infarction affecting right dominant side; E78.5 Hyperlipidemia, unspecified; I25.2 Old myocardial infarction; Z79.82 Long term (current) use of aspirin; Z90.710 Acquired absence of both cervix and uterus; Z95.5 Presence of coronary angioplasty implant and graft; M06.9 Rheumatoid arthritis, unspecified; E87.1 Hypo-osmolality and hyponatremia; Z82.49 Family history of ischemic heart disease and other diseases of the circulatory system
CPT/HCPCS: 71045; 74177; 76705; 80053; 81003; 82248; 82948; 83690; 85025; 85027; 85610; 87040; 87502; 99202; 99281; 99285; J1650; J1815; J2405; J2543; J3480; J7030; J7050

== ENCOUNTER 2017-05-18 00:02 | Emergency (ER) | payer OTHER, MEDICARE ==
[~2017-05-18] VITALS: Ht 149.9 cm; Wt 50.4 kg
[~2017-05-18 00:02] MED LIST changes: +ACETAMINOPHEN325 M1 PO; +ASPERCREME1 EACH TP; +DULCOLAX10 MG PR; +FLAGYL500 MG PO; +FLORASTOR250 MG PO; +HYDRALAZINE HCL10 MG PO; +MILK OF MAGN PO; +MIRALAX255 GM PO; +ONDANSETRON HCL4 MG PO; +OXYCODONE HCL5 MG PO; +RANITIDINE HCL150 MG PO; +ROCEPHIN1 GM/50 ML IV; +SEROQUEL12.5 MG PO; +TYLENOL REGULA325 MG PO
[2017-05-18 00:42] LABS: HEMATOCRIT 30.8 % (36.0-46.0); MCH 31.2 PG (29.0-34.0); MCHC 35.7 G/DL (30.0-36.0); MCV 87.3 FL (83-99); PLATELET COUNT 319 K/uL (156-360); RBC DIS.WIDTH-CV 14.6 % (11.8-14.6); RED BLOOD COUNT 3.53 M/uL (3.80-5.20); WHITE BLOOD COUNT 16.7 K/uL (4.1-10.2)
[2017-05-18 00:51] LABS: CHLORIDE 107 mEq/L (99-109); POTASSIUM 3.3 mEq/L (3.7-5.4); SODIUM 137 mEq/L (136-147)
[2017-05-18 00:54] LABS: GLUCOSE 139 mg/dL (70-99); TOTAL PROTEIN 5.5 g/dL (6.4-8.3)
[2017-05-18 00:57] LABS: ALKALINE PHOSPHATASE 93 IU/L (3-129); CREATININE 0.6 mg/dL (0.6-1.3); GFR ESTIMATE (CALCULATED) > 59 mL/min/
[2017-05-18 00:58] LABS: UREA NITROGEN (BUN) 12 mg/dL (9-23)
[2017-05-18 00:59] LABS: AST (GOT) 18 IU/L (2-34)
[2017-05-18 01:00] LABS: ALT (GPT) 13 IU/L (3-49); LIPASE 50 U/L (1.0-51.0); TOTAL BILIRUBIN 0.3 mg/dL (0.0-1.0)
[2017-05-18 01:03] LABS: TROP-I INTERPRETATION NEGATIVE; TROPONIN-I < 0.01 ng/mL (0.0-0.30)
[2017-05-18 01:23] LABS: APPEARANCE CLEAR ((CLEAR)); BILIRUBIN NEGATIVE; BLOOD NEGATIVE; COLOR YELLOW ((YELLOW)); GLUCOSE (STRIP) NEGATIVE; KETONES NEGATIVE; LEUKOCYTES TRACE; NITRITE NEGATIVE; PROTEIN (STRIP) 30; SPECIFIC GRAVITY 1.015 (1.000-1.030); UROBILINOGEN 0.2 MG/DL (0.2-1.0)
[2017-05-18 01:41] LABS: EPITHELIAL CELLS RARE /HPF; RED BLOOD CELLS 0-5 /HPF (0-5); WHITE BLOOD CELLS 15-20 /HPF (0-5)
[2017-05-18 01:42] LABS: BACTERIA RARE /HPF; MUCUS RARE /LPF; UCUL ADDED? YES
[2017-05-18] MEDS ORDERED: KEFLEX500 MG PO (03:16)
[2017-05-18 04:54] VITALS: BP 120/87
== END 2017-05-18 05:08 ==
LOC: EME → EDBD 00:02 → EME 00:02
PROVIDERS: Emergency Medicine
DX: N39.0 Urinary tract infection, site not specified (principal); R11.2 Nausea with vomiting, unspecified; I10 Essential (primary) hypertension; K21.9 Gastro-esophageal reflux disease without esophagitis; J44.9 Chronic obstructive pulmonary disease, unspecified; E11.9 Type 2 diabetes mellitus without complications; M06.9 Rheumatoid arthritis, unspecified; F32.9 Major depressive disorder, single episode, unspecified; I25.2 Old myocardial infarction; Z87.891 Personal history of nicotine dependence; Z86.73 Personal history of transient ischemic attack (TIA), and cerebral infarction without residual deficits; Z85.828 Personal history of other malignant neoplasm of skin; Z79.82 Long term (current) use of aspirin; Z88.8 Allergy status to other drugs, medicaments and biological substances
CPT/HCPCS: 74176; 80053; 81003; 83690; 84484; 85027; 87086; 87106; 93005; 99281; 99285

== ENCOUNTER 2017-05-30 13:59 | Inpatient (IN) | payer OTHER, MEDICARE ==
[~2017-05-30] VITALS: Ht 170.2 cm; Wt 44.1 kg
[~2017-05-30 13:59] MED LIST changes: +KEFLEX500 MG PO; -PROAIR HFA8.5 GM IH; +VENTOLIN HFA18 GM IH
[2017-05-30 15:49] LABS: BASOPHIL (%) 0.4 % (0-1); BASOPHIL COUNT 0.1 K/uL (0-0.1); EOSINOPHIL (%) 1.5 % (0-5); EOSINOPHIL COUNT 0.2 K/uL (0-0.3); HEMATOCRIT 27.3 % (36.0-46.0); HEMOGLOBIN 9.3 G/DL (11.9-15.5); LYMPHOCYTE (%) 14.8 % (15-42); MCH 30.9 PG (29.0-34.0); MCHC 34.1 G/DL (30.0-36.0); MCV 90.7 FL (83-99); MONOCYTE (%) 11.3 % (3-12); MONOCYTE COUNT 1.6 K/uL (0-0.8); NEUTROPHIL COUNT 9.8 K/uL (1.8-6.4); PLATELET COUNT 487 K/uL (156-360); RBC DIS.WIDTH-CV 15.5 % (11.8-14.6); RBC DIS.WIDTH-SD 50.4 % (39-53); RED BLOOD COUNT 3.01 M/uL (3.80-5.20); WHITE BLOOD COUNT 13.8 K/uL (4.1-10.2)
[2017-05-30 16:04] LABS: CHLORIDE 95 mEq/L (99-109); POTASSIUM 3.6 mEq/L (3.7-5.4); SODIUM 135 mEq/L (136-147)
[2017-05-30 16:08] LABS: GLUCOSE 127 mg/dL (70-99)
[2017-05-30 16:09] LABS: CREATININE 1.4 mg/dL (0.6-1.3); GFR ESTIMATE (CALCULATED) 39 mL/min/
[2017-05-30 16:10] LABS: UREA NITROGEN (BUN) 39 mg/dL (9-23)
[2017-05-30 16:18] LABS: TROP-I INTERPRETATION NEGATIVE; TROPONIN-I < 0.01 ng/mL (0.0-0.30)
[2017-05-30 17:03] LABS: APPEARANCE SL.HAZY ((CLEAR)); BILIRUBIN NEGATIVE; BLOOD NEGATIVE; COLOR YELLOW ((YELLOW)); GLUCOSE (STRIP) NEGATIVE; KETONES NEGATIVE; LEUKOCYTES SMALL; NITRITE NEGATIVE; PROTEIN (STRIP) 30; SPECIFIC GRAVITY 1.016 (1.000-1.030); UROBILINOGEN 0.2 MG/DL (0.2-1.0)
[2017-05-30 17:09] LABS: BACTERIA RARE /HPF; EPITHELIAL CELLS RARE /HPF; HYALINE CASTS 15-20 /LPF; MUCUS TRACE /LPF; RED BLOOD CELLS 0-5 /HPF (0-5); UCUL ADDED? YES
[2017-05-30 18:39] LABS: ALBUMIN 3.2 g/dL (3.2-4.8)
[2017-05-30 18:42] LABS: TOTAL PROTEIN 5.9 g/dL (6.4-8.3)
[2017-05-30 18:44] LABS: TOTAL BILIRUBIN 0.5 mg/dL (0.0-1.0)
[2017-05-30 18:45] LABS: ALKALINE PHOSPHATASE 101 IU/L (3-129)
[2017-05-30 18:47] LABS: AST (GOT) 18 IU/L (2-34); DIRECT BILIRUBIN 0.3 mg/dL (0.0-0.3)
[2017-05-30 18:48] LABS: ALT (GPT) 8 IU/L (3-49); LIPASE 21 U/L (1.0-51.0)
[2017-05-30] MEDS ORDERED: ATORVASTATIN CA40 MG PO (19:36)
[2017-05-30] MEDS ORDERED: LOPRESSOR100 M1 PO (19:38)
[2017-05-30] MEDS ORDERED: NOVOLOG 10100 UNITS/ SC (19:40)
[2017-05-30] MEDS ORDERED: MILK OF MAGN PO (19:41)
[2017-05-30] MEDS ORDERED: PHENERGAN50 M1 PR (19:44)
[2017-05-30] MEDS ORDERED: POTASSIUM CHLO20 ME2 PO (19:47)
[2017-05-30] MEDS ORDERED: QUETIAPINE FUMA25 MG PO (19:48)
[2017-05-30] MEDS ORDERED: DULCOLAX10 MG PR (19:52)
[2017-05-30 21:40] LABS: HEMATOCRIT 24.8 % (36.0-46.0); HEMOGLOBIN 8.4 G/DL (11.9-15.5); MCH 31.1 PG (29.0-34.0); MCHC 33.9 G/DL (30.0-36.0); MCV 91.9 FL (83-99); PLATELET COUNT 454 K/uL (156-360); RBC DIS.WIDTH-CV 15.7 % (11.8-14.6); RBC DIS.WIDTH-SD 51.3 % (39-53); WHITE BLOOD COUNT 12.6 K/uL (4.1-10.2)
[2017-05-30 22:05] VITALS: BP 107/59
[2017-05-31 07:19] VITALS: BP 183/67
[2017-05-31 11:13] LABS: CHLORIDE 102 MEQ/L (99-109); POTASSIUM 3.8 MEQ/L (3.7-5.4); SODIUM 137 MEQ/L (136-147); UREA NITROGEN (BUN) 22 mg/dL (9-23)
[2017-05-31 11:18] LABS: CREATININE 0.7 MG/DL (0.6-1.3); GFR ESTIMATE (CALCULATED) > 59 mL/min/; GLUCOSE 90 mg/dL (70-99)
[2017-05-31 16:33] VITALS: BP 143/65
[2017-06-01 08:35] VITALS: BP 127/60
[2017-06-02 00:21] VITALS: BP 134/67
[2017-06-02 07:26] VITALS: BP 137/67
[2017-06-02 15:24] LABS: HEMATOCRIT 30.2 % (36.0-46.0); HEMOGLOBIN 9.9 G/DL (11.9-15.5)
[2017-06-02 16:42] VITALS: BP 121/58
[2017-06-03 08:00] VITALS: BP 126/54
[2017-06-03 15:38] LABS: ALBUMIN 2.8 G/DL (3.2-4.8); CREATININE 0.5 MG/DL (0.6-1.3); GFR ESTIMATE (CALCULATED) > 59 mL/min/; GLUCOSE 181 mg/dL (70-99); SODIUM 142 MEQ/L (136-147); TOTAL BILIRUBIN 0.4 MG/DL (0.0-1.0); TOTAL PROTEIN 5.4 G/DL (6.4-8.3); UREA NITROGEN (BUN) 12 mg/dL (9-23)
[2017-06-03 15:42] LABS: ALKALINE PHOSPHATASE 116 IU/L (3-129); ALT (GPT) 17 IU/L (3-49); AST (GOT) 28 IU/L (2-34); CHLORIDE 113 MEQ/L (99-109); POTASSIUM 5.7 MEQ/L (3.7-5.4)
[2017-06-03 16:00] VITALS: BP 147/67
[2017-06-03 19:44] LABS: HEMATOCRIT 26.3 % (36.0-46.0); HEMOGLOBIN 8.2 G/DL (11.9-15.5)
[2017-06-03 23:54] LABS: HEMATOCRIT 22.3 % (36.0-46.0); HEMOGLOBIN 7.1 G/DL (11.9-15.5); MCV 97.4 FL (83-99)
[2017-06-04 05:48] VITALS: BP 130/66
[2017-06-04 05:51] LABS: HEMATOCRIT 23.8 % (36.0-46.0); HEMOGLOBIN 7.3 G/DL (11.9-15.5); MCH 30.4 PG (29.0-34.0); MCHC 30.7 G/DL (30.0-36.0); MCV 99.2 FL (83-99); NRBC (%) 0.2 /100 WBC (0-0); PLATELET COUNT 581 K/uL (156-360); RBC DIS.WIDTH-SD 61.5 % (39-53); WHITE BLOOD COUNT 13.2 K/uL (4.1-10.2)
[2017-06-04 06:00] LABS: ALBUMIN 2.4 g/dL (3.2-4.8); SODIUM 146 mEq/L (136-147)
[2017-06-04 06:02] LABS: GLUCOSE 214 mg/dL (70-99)
[2017-06-04 06:04] LABS: TOTAL BILIRUBIN 0.4 mg/dL (0.0-1.0)
[2017-06-04 06:05] LABS: ALKALINE PHOSPHATASE 104 IU/L (3-129)
[2017-06-04 06:06] LABS: CREATININE 0.7 mg/dL (0.6-1.3); GFR ESTIMATE (CALCULATED) > 59 mL/min/
[2017-06-04 06:07] LABS: AST (GOT) 12 IU/L (2-34)
[2017-06-04 06:09] LABS: ALT (GPT) 12 IU/L (3-49); CHLORIDE 116 mEq/L (99-109); POTASSIUM 6.4 mEq/L (3.7-5.4); TOTAL PROTEIN 4.2 g/dL (6.4-8.3); UREA NITROGEN (BUN) 25 mg/dL (9-23)
[2017-06-04] MEDS ORDERED: LEVSIN-SL0.125 MG SL (16:19)
[2017-06-04] MEDS ORDERED: ATIVAN INTE2 MG/1 ML PO (16:19)
[2017-06-04] MEDS ORDERED: MORPHINE CON20 MG/M1 PO (16:19)
== END 2017-06-04 18:20 | disposition hospice, home (50) | DRG 409 ==
LOC: EME 13:59 → 5SOUTH 20:30 → EDOF 20:30 → ENRESERV 20:31 → 5SOUTH 21:52
PROVIDERS: Emergency Medicine; Hospitalist; Internal Medicine; Surgery
DX: K80.13 Calculus of gallbladder with acute and chronic cholecystitis with obstruction (principal); T85.590A Other mechanical complication of bile duct prosthesis, initial encounter; S02.2XXA Fracture of nasal bones, initial encounter for closed fracture; W01.0XXA Fall on same level from slipping, tripping and stumbling without subsequent striking against object, initial encounter; Y92.129 Unspecified place in nursing home as the place of occurrence of the external cause; I69.351 Hemiplegia and hemiparesis following cerebral infarction affecting right dominant side; K92.0 Hematemesis; N17.9 Acute kidney failure, unspecified; E87.5 Hyperkalemia; K82.1 Hydrops of gallbladder; F03.90 Unspecified dementia, unspecified severity, without behavioral disturbance, psychotic disturbance, mood disturbance, and anxiety; F05 Delirium due to known physiological condition; L89.899 Pressure ulcer of other site, unspecified stage; E86.0 Dehydration; Z78.1 Physical restraint status; E11.51 Type 2 diabetes mellitus with diabetic peripheral angiopathy without gangrene; K66.0 Peritoneal adhesions (postprocedural) (postinfection); I10 Essential (primary) hypertension; D50.0 Iron deficiency anemia secondary to blood loss (chronic); Z66 Do not resuscitate; Z51.5 Encounter for palliative care; J44.9 Chronic obstructive pulmonary disease, unspecified; R63.0 Anorexia; Z68.1 Body mass index [BMI] 19.9 or less, adult; S61.412A Laceration without foreign body of left hand, initial encounter; S00.211A Abrasion of right eyelid and periocular area, initial encounter; I25.10 Atherosclerotic heart disease of native coronary artery without angina pectoris; D63.8 Anemia in other chronic diseases classified elsewhere; E78.5 Hyperlipidemia, unspecified; M06.9 Rheumatoid arthritis, unspecified; K21.9 Gastro-esophageal reflux disease without esophagitis; R29.6 Repeated falls; M81.0 Age-related osteoporosis without current pathological fracture; I25.2 Old myocardial infarction; F32.9 Major depressive disorder, single episode, unspecified; Z96.89 Presence of other specified functional implants; Z85.828 Personal history of other malignant neoplasm of skin; Z87.891 Personal history of nicotine dependence; Z91.81 History of falling; Z93.3 Colostomy status; Z95.5 Presence of coronary angioplasty implant and graft; Z90.710 Acquired absence of both cervix and uterus; Z79.82 Long term (current) use of aspirin
CPT/HCPCS: 70450; 70486; 72125; 80048; 80048 91; 80053; 80076; 80202; 81003; 82948; 83605; 83690; 84484; 85014; 85018; 85025; 85025 91; 85027; 86850; 86900; 86901; 87040; 87070; 87075; 87086; 87205; 88304; 93005; 99202; 99281; 99285; C9113; J0131; J0692; J1100; J1170; J1630; J1644; J1815; J2060; J2405; J2543; J2710; J3010; J3370; J3475; J3486; J7030; J7050; S0028

== ENCOUNTER 2017-08-05 10:54 | Emergency (ER) | payer OTHER, MEDICARE ==
[~2017-08-05] VITALS: Ht 154.9 cm; Wt 48.0 kg
[~2017-08-05 10:54] MED LIST changes: +ATIVAN INTE2 MG/1 ML PO; +LEVSIN-SL0.125 MG SL; +MORPHINE CON20 MG/M1 PO; +PHENERGAN50 M1 PR; +POTASSIUM CHLO20 ME2 PO
[2017-08-05 11:45] LABS: APPEARANCE CLEAR ((CLEAR)); BILIRUBIN NEGATIVE; BLOOD NEGATIVE; COLOR YELLOW ((YELLOW)); GLUCOSE (STRIP) NEGATIVE; KETONES NEGATIVE; LEUKOCYTES NEGATIVE; NITRITE NEGATIVE; PROTEIN (STRIP) NEGATIVE; SPECIFIC GRAVITY 1.009 (1.000-1.030); UROBILINOGEN 0.2 MG/DL (0.2-1.0)
[2017-08-05 11:51] LABS: BASOPHIL (%) 0.6 % (0-1); BASOPHIL COUNT 0.1 K/uL (0-0.1); EOSINOPHIL (%) 1.3 % (0-5); EOSINOPHIL COUNT 0.1 K/uL (0-0.3); HEMATOCRIT 35.9 % (36.0-46.0); HEMOGLOBIN 11.4 G/DL (11.9-15.5); IMMATURE GRANULOCYTE (%) 0.3 % (0.0-0.7); LYMPHOCYTE (%) 32.8 % (15-42); LYMPHOCYTE COUNT 3.3 K/uL (1.0-2.8); MCH 25.3 PG (29.0-34.0); MCHC 31.8 G/DL (30.0-36.0); MCV 79.8 FL (83-99); MONOCYTE (%) 8.5 % (3-12); MONOCYTE COUNT 0.9 K/uL (0-0.8); NEUTROPHIL (%) 56.5 % (45-76); NEUTROPHIL COUNT 5.6 K/uL (1.8-6.4); PLATELET COUNT 396 K/uL (156-360); RBC DIS.WIDTH-SD 45.7 % (39-53)
[2017-08-05 11:56] LABS: AMPHETAMINE NEGATIVE (500 ng/mL); BARBITURATES NEGATIVE (200 ng/mL); BENZODIAZEPINES NEGATIVE (150 ng/mL); BUPRENORPHINE NEGATIVE (10 ng/mL); COCAINE NEGATIVE (150 ng/mL); METHADONE NEGATIVE (200 ng/mL); METHAMPHETAMINE NEGATIVE (500 ng/mL); OPIATES (MORPHINE) NEGATIVE (100 ng/mL); OXYCODONE NEGATIVE (100 ng/mL); PHENCYCLIDINE NEGATIVE (25 ng/mL); PROPOXYPHENE NEGATIVE (300 ng/mL); THC CANNABINOIDS NEGATIVE (50 ng/mL); TRICYCLIC ANTIDEPRESSANTS PRESUMPTIVE POSITIVE (300 ng/mL)
[2017-08-05 11:59] LABS: CHLORIDE 107 mEq/L (99-109); POTASSIUM 4.6 mEq/L (3.7-5.4); SODIUM 140 mEq/L (136-147)
[2017-08-05 12:01] LABS: GLUCOSE 87 mg/dL (70-99)
[2017-08-05 12:04] LABS: SERUM ETHYL ALCOHOL < 10 mg/dL
[2017-08-05 12:05] LABS: CREATININE 0.8 mg/dL (0.6-1.3); GFR ESTIMATE (CALCULATED) > 59 mL/min/
[2017-08-05 12:06] LABS: UREA NITROGEN (BUN) 13 mg/dL (9-23)
[2017-08-05 16:58] VITALS: BP 197/91
== END 2017-08-05 17:10 ==
LOC: EME 10:54
PROVIDERS: Emergency Medicine
DX: F43.25 Adjustment disorder with mixed disturbance of emotions and conduct (principal); F33.1 Major depressive disorder, recurrent, moderate; F02.81 Dementia in other diseases classified elsewhere, unspecified severity, with behavioral disturbance; E11.9 Type 2 diabetes mellitus without complications; J44.9 Chronic obstructive pulmonary disease, unspecified; I10 Essential (primary) hypertension; I25.2 Old myocardial infarction; K21.9 Gastro-esophageal reflux disease without esophagitis; M06.9 Rheumatoid arthritis, unspecified; Z91.81 History of falling; Z86.73 Personal history of transient ischemic attack (TIA), and cerebral infarction without residual deficits; Z88.8 Allergy status to other drugs, medicaments and biological substances; Z87.891 Personal history of nicotine dependence
CPT/HCPCS: 70450; 80048; 81003; 85025; 90839; 99281; 99285; G0480; J1630; J2060